=== PATIENT | male | born 1955 | race Caucasian/White ===

== ENCOUNTER 2021-03-11 11:27 | Observation (INO) | payer BC, OTHER ==
[2021-03-11 12:10] LABS: Protime INR 0.98
[2021-03-11 12:11] LABS: Absolute Lymphocytes (CBC) 1.2 K/uL (0.7-4.9); Basophils % 0.6 % (0-1.3); Hematocrit 36.5 % (39.6-49.0); Lymphocytes % 19.1 % (15.3-44.8); MPV 7.7 fL (7.6-11.3)
[2021-03-11] MEDS ORDERED: ASPIRIN 81 MG CHEWABLE TABLET ONE (12:14)
[2021-03-11 12:17] LABS: ALT/SGPT 15 U/L (12-78); AST/SGOT 20 U/L (15-37); Albumin 3.7 g/dL (3.4-5.0); Alkaline Phosphatase 72 U/L (45-117); BUN Blood Urea Nitrogen 16 mg/dL (7-18); Bicarbonate 25 mmol/L (21-32); Bilirubin Direct 0.2 mg/dL (0-0.2); Bilirubin Total 0.5 mg/dL (0.2-1.0); Glucose Level 104 mg/dL (74-106); Magnesium 1.9 mg/dL (1.8-2.4); NT PRO-BNP 88 pg/mL (<125); Potassium 3.7 mmol/L (3.5-5.1); Protein, Total 6.8 g/dL (6.4-8.2); Sodium Level 139 mmol/L (136-145); Troponin (Emerg Dept Use Only) 0.03 ng/mL (0.0-0.045)
--- NOTE | 2021-03-11 12:25 | RAD REPORT ---
EXAM DESCRIPTION: [facility] Single View03/11/2021 12:10 pm CLINICAL HISTORY: Chest pain COMPARISON: none FINDINGS: A few areas of subsegmental atelectasis or scarring left lung base. Right lung appears clear. Heart is normal size
--- NOTE | 2021-03-11 13:47 | EDPHYS ---
Physician Documentation [facility] Name: Franki Billings Age: 65 yrs Sex: Male : 1955 Arrival Date: 03/11/2021 Time: 11:30 Bed 13 Private MD: ED Physician Favian Williamson HPI: 03/11 11:48 This 65 yrs old Male presents to ER via Ambulatory with complaints of Chest pm1 Pain. 11:48 The patient or guardian reports chest pain that is located primarily in the anterior pm1 aspect of left upper chest and mid-sternal area. Onset: yesterday. The pain does not radiate. Associated signs and symptoms: Pertinent negatives: abdominal pain, cough, diaphoresis, dizziness, headache, nausea, shortness of breath, vomiting. The chest pain is described as a pressure. Duration: The patient or guardian reports multiple episodes, the episodes last approximately 30 minute(s), today. Modifying factors: the symptoms are aggravated by possibly exertion while doing his chores. Severity of pain: in the emergency department the pain has improved currently 1-2/10, at worse this AM 7-8. The patient has not recently seen a physician, the patient's primary care provider is Dr. Espinoza. Patient with chest pain onset yesterday that same and went. This AM at 0300 it woke him up out of sleep, 7-8/10 and lasted for 30 minutes. Took some Benadryl to help him go back to sleep. Woke up at 830 and thirty minutes into doing his chores he started having the chest pressure again. Pain has improved to 1-2/10 just prior to ER arrival. Historical: - Allergies: 11:45 No Known Allergies; bp - Home Meds: 11:45 pravastatin oral oral [Active]; amlodipine oral [Active]; CONCERTA Oral [Active]; bp pantoprazole oral oral [Active]; BuSpar Oral [Active]; tamsulosin oral oral [Active]; - PMHx: 11:45 PSYCH; High Cholesterol; Hypertension; bp - Immunization history:: Adult Immunizations up to date, Client reports having NOT received the Covid vaccine. - Social history:: Smoking status: Patient reports the use of cigarette tobacco products, smokes one pack cigarettes per day. ROS: 11:48 Constitutional: Negative for fever, chills, and weight loss, Eyes: Negative for injury, pm1 pain, redness, and discharge, ENT: Negative for injury, pain, and discharge, Neck: Negative for injury, pain, and swelling. 11:48 Respiratory: Negative for shortness of breath, cough, wheezing, and pleuritic chest pain, Abdomen/GI: Negative for abdominal pain, nausea, vomiting, diarrhea, and constipation, Back: Negative for injury and pain, MS/Extremity: Negative for injury and deformity, Skin: Negative for injury, rash, and discoloration, Neuro: Negative for headache, weakness, numbness, tingling, and seizure. 11:48 Cardiovascular: Positive for chest pain, Negative for edema, palpitations. Exam: 11:48 Constitutional: This is a well developed, well nourished patient who is awake, alert, pm1 and in no acute distress. Head/Face: Normocephalic, atraumatic. Eyes: Pupils equal round and reactive to light, extra-ocular motions intact. Lids and lashes normal. Conjunctiva and sclera are non-icteric and not injected. Cornea within normal limits. Periorbital areas with no swelling, redness, or edema. Neck: Trachea midline, no thyromegaly or masses palpated, and no cervical lymphadenopathy. Supple, full range of motion without nuchal rigidity, or vertebral point tenderness. No Meningismus. Chest/axilla: Normal chest wall appearance and motion. Nontender with no deformity. No lesions are appreciated. Cardiovascular: Regular rate and rhythm with a normal S1 and S2. No gallops, murmurs, or rubs. Normal PMI, no JVD. No pulse deficits. Respiratory: Lungs have equal breath sounds bilaterally, clear to auscultation and percussion. No rales, rhonchi or wheezes noted. No increased work of breathing, no retractions or nasal flaring. Back: No spinal tenderness. No costovertebral tenderness. Full range of motion. 11:48 Skin: Warm, dry with normal turgor. Normal color with no rashes, no lesions, and no evidence of cellulitis. MS/ Extremity: Pulses equal, no cyanosis. Neurovascular intact. Full, normal range of motion. 11:48 Abdomen/GI: Inspection: abdomen appears normal, Palpation: abdomen is soft and non-tender, in all quadrants. 11:48 Neuro: Exam negative for acute changes, Orientation: is normal, Mentation: is normal, Motor: is normal, moves all fours. Vital Signs: 11:41 BP 129 / 82; Pulse 72; Resp 16; Temp 98.9; Pulse Ox 100% ; Weight 90.72 kg; Height 5 bp ft. 7 in. (170.18 cm); 12:00 BP 128 / 75; Pulse 74; Resp 20; Pulse Ox 97% on R/A; vg1 12:30 BP 119 / 80; Pulse 66; Resp 22; Pulse Ox 96% on R/A; vg1 13:30 BP 139 / 83; Pulse 62; Resp 16; Pulse Ox 100% on R/A; vg1 14:00 BP 134 / 74; Pulse 70; Resp 20; Pulse Ox 100% on R/A; vg1 16:08 BP 136 / 75; Pulse 58; Resp 18; Pulse Ox 100% on R/A; vg1 11:41 Body Mass Index 31.32 (90.72 kg, 170.18 cm) bp MDM: 11:36 Patient medically screened. [facility] 13:46 Data reviewed: vital signs. Data interpreted: Pulse oximetry: on room air is 100 %. pm1 Interpretation: normal. Counseling: I had a detailed discussion with the patient and/or guardian regarding: the historical points, exam findings, and any diagnostic results supporting the discharge/admit diagnosis, lab results, radiology results, the need for further work-up and treatment in the hospital. 13:52 Physician consultation: Nancy Craig MD was contacted at 13:52, regarding admission, pm1 patient's condition, and will see patient. 03/11 11:40 Order name: Basic Metabolic Panel; Complete Time: 12:21 pm03/11 11:40 Order name: CBC with Diff; Complete Time: 12:21 pm03/11 11:40 Order name: LFT's; Complete Time: 12:21 pm03/11 11:40 Order name: Magnesium; Complete Time: 12:21 pm03/11 11:40 Order name: NT PRO-BNP; Complete Time: 12:21 pm1 03/11 11:40 Order name: PT-INR; Complete Time: 12:21 pm1 03/11 11:40 Order name: Troponin (emerg Dept Use Only); Complete Time: 12:21 pm1 03/11 13:27 Order name: SARS-COV-2 RT PCR; Complete Time: 13:37 [facility] 03/11 14:28 Order name: Lipid Profile [facility] 03/11 14:28 Order name: Lipid Profile [facility] 03/11 14:28 Order name: Troponin I [facility] 03/11 14:28 Order name: Troponin I [facility] 03/11 14:28 Order name: Troponin I [facility] 03/11 11:40 Order name: XRAY Chest (1 view); Complete Time: 12:26 pm1 03/11 11:40 Order name: EKG; Complete Time: 11:41 pm1 03/11 11:40 Order name: Cardiac monitoring; Complete Time: 11:51 pm1 03/11 11:40 Order name: EKG - Nurse/Tech; Complete Time: 11:51 pm1 03/11 11:40 Order name: IV Saline Lock; Complete Time: 11:51 pm1 03/11 11:40 Order name: Labs collected and sent; Complete Time: 11:51 pm1 03/11 11:40 Order name: O2 Per Protocol; Complete Time: 11:51 pm1 03/11 11:40 Order name: O2 Sat Monitoring; Complete Time: 11:51 pm1 03/11 14:28 Order name: CONS Physician Consult [facility] 03/11 14:28 Order name: Heart Healthy [facility] 03/11 14:28 Order name: Echo with Doppler [facility] 03/11 14:28 Order name: EKG Electrocardiogram [facility] 03/11 14:28 Order name: EKG Electrocardiogram [facility] Administered Medications: 11:57 Drug: Aspirin Chewable Tablet 324 mg Route: PO; vg1 13:39 Follow up: Response: No adverse reaction vg1 Disposition: 03/12 10:02 Co-signature as Attending Physician, Favian Williamson MD I agree with the assessment and harish plan of care. Disposition: 03/11/21 13:46 Hospitalization ordered by Nancy Craig for Observation. Preliminary diagnosis is Chest pain, unspecified. - Bed requested for Telemetry/MedSurg (observation). - Status is Observation. vg1 - Condition is Stable. - Problem is new. - Symptoms have improved. Signatures: Dispatcher [employer] [facility] Radha Curtis RN RN dw Anderson, Corey, MD MD cha Marinas, Jef, MUSHROOM PICKER MUSHROOM PICKER pm1 Sixto Hammond, RN RN bp Yanely Whitten, WINIFRED RN vg1 Corrections: (The following items were deleted from the chart) 03/11 12:21 11:47 CORONAVIRUS+ ordered. EDMS EDMS 15:31 13:46 Hospitalization Ordered by Nancy Craig MD for Observation. Preliminary dw diagnosis is Chest pain, unspecified. Bed requested for Telemetry/MedSurg (observation). Status is Observation. Condition is Stable. Problem is new. Symptoms have improved. pm1 16:21 15:31 03/11/2021 13:46 Hospitalization Ordered by Nancy Craig MD for Observation. vg1 Preliminary diagnosis is Chest pain, unspecified. Bed requested for Telemetry/MedSurg (observation). Status is Observation. Condition is Stable. Problem is new. Symptoms have improved. dw
--- NOTE | 2021-03-11 13:47 | ER ---
Nurse's Notes [facility] Name: Franki Billings Age: 65 yrs Sex: Male : 1955 Arrival Date: 03/11/2021 Time: 11:30 Bed 13 Private MD: Diagnosis: Chest pain, unspecified Presentation: 03/11 11:41 Chief complaint: Patient states: INCREASING CHEST PAIN x5 DAYS, TODAY WOKE PATIENT FROM bp SLEEP. Coronavirus screen: At this time, the client does not indicate any symptoms associated with coronavirus-19. Ebola Screen: No symptoms or risks identified at this time. Initial Sepsis Screen: Does the patient meet any 2 criteria? No. Patient's initial sepsis screen is negative. Does the patient have a suspected source of infection? No. Patient's initial sepsis screen is negative. Risk Assessment: Do you want to hurt yourself or someone else? Patient reports no desire to harm self or others. Onset of symptoms is unknown. 11:41 Method Of Arrival: Ambulatory bp 11:41 Acuity: DREW 2 bp Triage Assessment: 11:45 General: Appears in no apparent distress. uncomfortable, obese, Behavior is bp cooperative, appropriate for age, anxious. Pain: Complains of pain in chest Pain currently is 3 out of 10 on a pain scale. at worst was 8 out of 10 on a pain scale. Quality of pain is described as heavy. EENT: No deficits noted. Neuro: Level of Consciousness is awake, alert, obeys commands, Oriented to Appropriate for age. Cardiovascular: Rhythm is sinus rhythm. Respiratory: No deficits noted. GI: No signs and/or symptoms were reported involving the gastrointestinal system. : No signs and/or symptoms were reported regarding the genitourinary system. Derm: No deficits noted. Musculoskeletal: No deficits noted. Historical: - Allergies: 11:45 No Known Allergies; bp - Home Meds: 11:45 pravastatin oral oral [Active]; amlodipine oral [Active]; CONCERTA Oral [Active]; bp pantoprazole oral oral [Active]; BuSpar Oral [Active]; tamsulosin oral oral [Active]; - PMHx: 11:45 PSYCH; High Cholesterol; Hypertension; bp - Immunization history:: Adult Immunizations up to date, Client reports having NOT received the Covid vaccine. - Social history:: Smoking status: Patient reports the use of cigarette tobacco products, smokes one pack cigarettes per day. Screenin:45 Abuse screen: Denies threats or abuse. Denies injuries from another. Nutritional bp screening: No deficits noted. Tuberculosis screening: No symptoms or risk factors identified. Fall Risk None identified. Assessment: 11:45 General: SEE TRIAGE NOTE. bp 11:45 Pain: Pain does not radiate. Pain began 2-3 days ago. bp 12:30 Reassessment: Patient appears in no apparent distress at this time. Patient and/or vg1 family updated on plan of care and expected duration. Pain level reassessed. Patient is alert, oriented x 3, equal unlabored respirations, skin warm/dry/pink. Patient denies pain at this time. 13:22 Reassessment: Patient appears in no apparent distress at this time. Patient and/or vg1 family updated on plan of care and expected duration. Pain level reassessed. Patient is alert, oriented x 3, equal unlabored respirations, skin warm/dry/pink. Pt is currently using chewing tobacco at the bedside. Provider notified. Patient denies pain at this time. 16:09 Reassessment: Patient appears in no apparent distress at this time. Patient and/or vg1 family updated on plan of care and expected duration. Pain level reassessed. Patient is alert, oriented x 3, equal unlabored respirations, skin warm/dry/pink. Patient denies pain at this time. 16:14 Reassessment: Report given to WINIFRED Bravo. vg1 Vital Signs: 11:41 BP 129 / 82; Pulse 72; Resp 16; Temp 98.9; Pulse Ox 100% ; Weight 90.72 kg; Height 5 bp ft. 7 in. (170.18 cm); 12:00 BP 128 / 75; Pulse 74; Resp 20; Pulse Ox 97% on R/A; vg1 12:30 BP 119 / 80; Pulse 66; Resp 22; Pulse Ox 96% on R/A; vg1 13:30 BP 139 / 83; Pulse 62; Resp 16; Pulse Ox 100% on R/A; vg1 14:00 BP 134 / 74; Pulse 70; Resp 20; Pulse Ox 100% on R/A; vg1 16:08 BP 136 / 75; Pulse 58; Resp 18; Pulse Ox 100% on R/A; vg1 11:41 Body Mass Index 31.32 (90.72 kg, 170.18 cm) bp ED Course: 11:30 Patient arrived in ED. ds1 11:33 Jef Dillard NP is PHCP. pm1 11:33 Favian Williamson MD is Attending Physician. pm1 11:43 Triage completed. bp 11:45 Arm band placed on. bp 11:45 Patient has correct armband on for positive identification. Bed in low position. Call bp light in reach. Side rails up X2. radiation monitor on. Pulse ox on. NIBP on. 11:45 Patient maintains SpO2 saturation greater than 95% on room air. bp 11:46 Initial lab(s) drawn, by me, sent to lab. Inserted saline lock: 20 gauge in right vg1 antecubital area, using aseptic technique. Blood collected. 11:53 Yanely Whitten, RN is Primary Nurse. vg1 11:57 COVID swab sent to lab. vg1 12:10 XRAY Chest (1 view) In Process Unspecified. EDMS 13:46 Nancy Craig MD is Hospitalizing Provider. pm1 16:15 No provider procedures requiring assistance completed. Patient admitted, IV remains in vg1 place. Administered Medications: 11:57 Drug: Aspirin Chewable Tablet 324 mg Route: PO; vg1 13:39 Follow up: Response: No adverse reaction vg1 Outcome: 13:46 Decision to Hospitalize by Provider. pm1 16:15 Admitted to Tele accompanied by nurse, via wheelchair, room 427, with chart, Report vg1 called to WINIFRED Bravo 16:15 Condition: good 16:15 Instructed on the need for admit. 16:21 Patient left the ED. vg1 Signatures: Dispatcher [employer] [facility] ClemensSarahi rodriguez ds1 Jef Dillard NP DIETETICS TEACHER pm1 Sixto Hammond, WINIFRED RN bp Yanely Whitten RN RN vg1
[2021-03-11] MEDS ORDERED: MORPHINE 4 MG/ML SYR IV PRN (14:24)
[2021-03-11] MEDS ORDERED: ALPRAZOLAM 0.25 MG TABLET PO PRN (14:24)
[2021-03-11] MEDS ORDERED: ACETAMINOPHEN 500 MG TAB PO PRN (14:24)
[2021-03-11 16:35] VITALS: BMI 31.3
[2021-03-11] MEDS ORDERED: METOPROLOL TAR 25 MG TAB PO SCH (21:00)
--- NOTE | 2021-03-12 00:49 | P.HP ---
Certification for Inpatient Patient admitted to: Observation With expected LOS: <2 Midnights Patient will require the following post-hospital care: None Practitioner: I am a practitioner with admitting privileges, knowledge of patient current condition, hospital course, and medical plan of care. Services: Services provided to patient in accordance with Admission requirements found in Title 42 Section 412.3 of the Code of Federal Regulations Patient History Date of Service: 03/11/21 Reason for admission: Chest pain rule out acute coronary syndrome History of Present Illness: Patient is a 65-year-old gentleman who came to the hospital with chest discomfort. Patient started having some chest pain at home and it was not improving. Patient came into the emergency room for further evaluation. In the emergency room when patient arrived patient states his chest pain started getting better. By the time he got into the hospital bed he says his chest pain was relieved. He was feeling a little bit diaphoretic. He was also little short of breath. He feels this may be related to stress. Patient be admitted for further evaluation. Allergies No Known Allergies Allergy (Verified 03/11/21 15:20) Home Medications: Amlodipine Besylate 10 mg PO DAILY 03/11/21 Buspirone HCl [Buspar] 1 tab PO BID 03/11/21 Duloxetine HCl 60 mg PO DAILY 03/11/21 Methylphenidate HCl [Concerta] 1 tab PO DAILY 03/11/21 Metoprolol Tartrate 50 mg PO BID 03/11/21 Pantoprazole Sodium 40 mg PO DAILY 03/11/21 Pravastatin Sodium 40 mg PO DAILY 03/11/21 Tamsulosin HCl 1 cap PO DAILY 03/11/21 - Past Medical/Surgical History Has patient received pneumonia vaccine in the past: No Diabetic: No -: HTn -: HLD -: Smoker -: [place] -: Bipolar -: laser-prostate - Family History Father Medical History: Other (see notes) Notes: smoker. Mother Medical History: Hypertension, Other (see notes) Notes: migraines - Social History Smoking Status: Current every day smoker Alcohol use: No CD- Drugs: No Caffeine use: Yes Place of Residence: Home Review of Systems 10-point ROS is otherwise unremarkable Physical Examination - Vital Signs Temperature: 98 F Blood Pressure: 113/63 Pulse: 18 Respirations: 18 Pulse Ox (%): 99 - Physical Exam General: Alert, In no apparent distress, Oriented x3 HEENT: Atraumatic, PERRLA, Mucous membr. moist/pink, EOMI, Sclerae nonicteric Neck: Supple, 2+ carotid pulse no bruit, No LAD, Without JVD or thyroid abnormality Respiratory: Clear to auscultation bilaterally, Normal air movement Cardiovascular: Regular rate/rhythm, Normal S1 S2 Gastrointestinal: Normal bowel sounds, Soft and benign, Non-distended, No tenderness Musculoskeletal: No clubbing, No swelling, No tenderness Integumentary: No rashes Neurological: Normal gait, Normal speech, Normal strength at 5/5 x4 extr, Normal tone, Sensation intact, Cranial nerves 3-12 intact, Normal affect Lymphatics: No axilla or inguinal lymphadenopathy - Studies Laboratory Data (last 24 hrs) 03/11/21 11:46: PT 11.3, INR 0.98 03/11/21 11:46: WBC 6.20, Hgb 12.4 L, Hct 36.5 L, Plt Count 283 03/11/21 11:46: Sodium 139, Potassium 3.7, BUN 16, Creatinine 0.77, Glucose 104, Magnesium 1.9, Total Bilirubin 0.5, AST 20, ALT 15, Alkaline Phosphatase 72 Assessment & Plan - Problems (Diagnosis) (1) Chest pain, rule out acute myocardial infarction Current Visit: Yes Status: Acute - Plan 1. Serial troponins and EKG 2. Cardiology consultation 3. Echocardiogram and stress test 4. Anti-platelet therapy, anti coagulation, beta-enriqueta, statin, and O2 as need ed 5. IV morphine for pain 6. Nitro p.r.n. Discharge Plan: Home Plan to discharge in: 24 Hours - Advance Directives Does patient have a Living Will: No Does patient have a Durable POA for Healthcare: No - Code Status/Comfort Care Code Status Assessed: Yes Code Status: Full Code Critical Care: No Time Spent Managing PTS Care (In Minutes): 35
[2021-03-12 07:49] VITALS: TEMP 97
[2021-03-12] MEDS ORDERED: REGADENOSON 0.4 MG/5 ML SYR IV ONE (08:50)
[2021-03-12] MEDS ORDERED: TAMSULOSIN 0.4 MG SR CAP PO SCH (09:00)
[2021-03-12] MEDS ORDERED: BUSPIRONE HCL 5 MG TABLET PO SCH (09:00)
[2021-03-12] MEDS ORDERED: METOPROLOL TAR 50 MG TAB PO SCH (09:00)
[2021-03-12] MEDS ORDERED: PANTOPRAZOLE 40MG TABLET PO SCH (09:00)
[2021-03-12] MEDS ORDERED: ASPIRIN EC 81 MG TAB PO SCH (09:00)
[2021-03-12] MEDS ORDERED: ENOXAPARIN 40 MG/0.4 ML SQ SCH (09:00)
[2021-03-12] MEDS ORDERED: AMLODIPINE 10 MG TAB PO SCH (09:00)
[2021-03-12] MEDS ORDERED: ATORVASTATIN 10 MG TAB PO SCH (09:00)
[2021-03-12] MEDS ORDERED: DULOXETINE 30 MG CAP PO SCH (09:00)
[2021-03-12] MEDS ORDERED: METHYLPHENIDATE HCL 18 MG PO SCH (09:00)
--- NOTE | 2021-03-12 10:58 | P.DS ---
Admission Date: 03/11/21 Discharge Date: 03/12/21 Primary Care Provider: Dr. López Disposition: ROUTINE DISCHARGE Discharge Condition: GOOD Reason for Admission: Chest pain rule out acute coronary syndrome Consultations: Cardiology-Dr. Fernadnez Procedures: COVID: Negative CXR: COMPARISON: none FINDINGS: A few areas of subsegmental atelectasis or scarring left lung base. Right lung appears clear. Heart is normal size Medical Problem List: Chest pain Hypertension Hyperlipidemia GERD Depression with anxiety Adult attention deficit disorder BPH Obesity, BMI 31.3 Brief History of Present Illness: 65-year-old male who came to the hospital with chest discomfort. Patient started having some chest pain at home and it was not improving. Patient came into the emergency room for further evaluation. In the emergency room when patient arrived patient states his chest pain started getting better. By the time he got into the hospital bed he says his chest pain was relieved. He was feeling a little bit diaphoretic. He was also little short of breath. H e feels this may be related to stress. Patient be admitted for further evaluation. Hospital Course: Patient presented with chest pain. Patient with history of hypertension, hyperlipidemia. Cardiac enzymes unremarkable. Patient seen and evaluated by cardiology. Cardiac stress test performed. No further chest pain noted at this time. No further intervention needed at this time. At discharge patient will continue with aspirin 81 mg daily, Norvasc 10 mg daily, metoprolol 50 mg 1 pill twice daily, and pravastatin 40 mg daily. Recommend follow-up with cardiology to follow-up his hospitalization. Patient with hypertension. Blood pressure stable. At discharge patient will continue with Norvasc 10 mg daily and metoprolol 50 mg 1 pill twice daily. Recommend to maintain blood pressure less than 130/80. Further adjustment can be done by his PCP. Patient with hyperlipidemia. At discharge patient will continue with pravastatin 40 mg daily. Patient with GERD. At discharge patient will continue with Protonix 40 mg daily. Patient with depression with anxiety and adult attention deficit disorder. At discharge patient will continue with his current medications of BuSpar 10 mg 1 pill twice daily, Cymbalta 60 mg daily, and Concerta as directed. Patient with BPH. At discharge patient will continue Flomax 0.4 mg daily. Vital Signs/Physical Exam: Temp Pulse Resp BP Pulse Ox 97.0 F 54 16 113/63 100 03/12/21 07:47 03/12/21 07:47 03/12/21 07:47 03/12/21 07:47 03/12/21 07:47 General: Alert, In no apparent distress, Oriented x3, Cooperative HEENT: Atraumatic Neck: Supple Respiratory: Clear to auscultation bilaterally, Normal air movement Cardiovascular: Normal pulses, Regular rate/rhythm Gastrointestinal: Normal bowel sounds, No tenderness, No masses, No rebound, No guarding Musculoskeletal: No erythema, No tenderness, No warmth Integumentary: No tenderness/swelling Neurological: Normal speech, Normal strength at 5/5 x4 extr, Normal tone, Normal affect Laboratory Data at Discharge: WBC 6.20 K/uL (4.3-10.9) 03/11/21 11:46 Hgb 12.4 g/dL (13.6-17.9) L 03/11/21 11:46 Hct 36.5 % (39.6-49.0) L 03/11/21 11:46 Plt Count 283 K/uL (152-406) 03/11/21 11:46 PT 11.3 SECONDS (9.5-12.5) 03/11/21 11:46 INR 0.98 03/11/21 11:46 Sodium 139 mmol/L (136-145) 03/11/21 11:46 Potassium 3.7 mmol/L (3.5-5.1) 03/11/21 11:46 BUN 16 mg/dL (7-18) 03/11/21 11:46 Creatinine 0.77 mg/dL (0.55-1.3) 03/11/21 11:46 Glucose 104 mg/dL (74-106) 03/11/21 11:46 Magnesium 1.9 mg/dL (1.8-2.4) 03/11/21 11:46 Total Bilirubin 0.5 mg/dL (0.2-1.0) 03/11/21 11:46 AST 20 U/L (15-37) 03/11/21 11:46 ALT 15 U/L (12-78) 03/11/21 11:46 Alkaline Phosphatase 72 U/L (45-117) 03/11/21 11:46 Troponin I 0.03 ng/mL (0.0-0.045) 03/12/21 03:08 Triglycerides 123 mg/dL (<150) 03/12/21 03:08 Cholesterol 138 mg/dL (<200) 03/12/21 03:08 HDL Cholesterol 37 mg/dL (40-60) L 03/12/21 03:08 Cholesterol/HDL Ratio 3.73 03/12/21 03:08 Home Medications: Amlodipine Besylate 10 mg PO DAILY 03/11/21 Buspirone HCl [Buspar] 1 tab PO BID 03/11/21 Duloxetine HCl 60 mg PO DAILY 03/11/21 Methylphenidate HCl [Concerta] 1 tab PO DAILY 03/11/21 Metoprolol Tartrate 50 mg PO BID 03/11/21 Pantoprazole Sodium 40 mg PO DAILY 03/11/21 Pravastatin Sodium 40 mg PO DAILY 03/11/21 Tamsulosin HCl 1 cap PO DAILY 03/11/21 Aspirin [Aspirin EC 81 MG] 81 mg PO DAILY #90 tablet. 03/12/21 New Medications: Aspirin [Aspirin EC 81 MG] 81 mg PO DAILY #90 tablet. Physician Discharge Instructions: Patient presented with chest pain. Patient with history of hypertension, hyperlipidemia. Cardiac enzymes unremarkable. Patient seen and evaluated by cardiology. Cardiac stress test performed. No further chest pain noted at this time. No further intervention needed at this time. At discharge patient will continue with aspirin 81 mg daily, Norvasc 10 mg daily, metoprolol 50 mg 1 pill twice daily, and pravastatin 40 mg daily. Recommend follow-up with cardiology to follow-up his hospitalization. Patient with hypertension. Blood pressure stable. At discharge patient will continue with Norvasc 10 mg daily and metoprolol 50 mg 1 pill twice daily. Recommend to maintain blood pressure less than 130/80. Further adjustment can be done by his PCP. Patient with hyperlipidemia. At discharge patient will continue with pravastatin 40 mg daily. Patient with GERD. At discharge patient will continue with Protonix 40 mg daily. Patient with depression with anxiety and adult attention deficit disorder. At discharge patient will continue with his current medications of BuSpar 10 mg 1 pill twice daily, Cymbalta 60 mg daily, and Concerta as directed. Patient with BPH. At discharge patient will continue Flomax 0.4 mg daily. Diet: AHA Activity: Ad lilia Followup: Isaiah Espinoza MD [ACTIVE - CAN ADMIT] - Time spent managing pt's care (in minutes): 55
--- NOTE | 2021-03-12 11:31 | RAD REPORT ---
EXAM DESCRIPTION: NM - Rest Stress Cardiac Imaging - 03/12/2021 10:57 am CLINICAL HISTORY: Chest pain COMPARISON: None. TECHNIQUE: The patient was administered 11 mCi of Tc 99m Sestamibi prior to resting SPECT imaging of the heart. The patient was then administered 32.9 mCi of Tc 99m Sestamibi following exercise or phar macologic stress. Multiplanar SPECT images were reviewed. FINDINGS: The end diastolic volume is 130 ml, the end systolic volume is 60 ml, and the ejection fra ction is 54 %. Stress imaging shows significantly diminished activity in the septal wall mid in apex portion and in the anteroseptal wall mid in apex portion. Small involvement of the adjacent inferior wall noted. Thi s diminished activity is absent or less pronounced on the rest sequencing. Patient does have fixed in ferior wall diminished activity. Lateral wall shows no abnormal profusion. IMPRESSION: Stress-induced ischemic changes involving the septal wall and anteroseptal wall from mid portion the apex. Scarring changes are present in the inferior wall mid in apex portion. This scarring abuts the area o f stress ischemia in the septal wall. End-diastolic volume is enlarged at 1:00 30 milliliters. Ejection fraction is normal range 54%
[2021-03-12 12:02] VITALS: O2SAT 98
[2021-03-12 12:08] VITALS: BP 123/70
--- NOTE | 2021-03-13 08:12 | ECHO ---
HEIGHT: 5 ft 7 in WEIGHT: 200 lb 0 oz DATE OF STUDY: 03/12/[address]: Nancy Craig MD 2-DIMENSIONAL: YES M.MODE: YES DOPPLER: YES COLOR FLOW: YES TDS: NO PORTABLE: NO DEFINITY: NO BUBBLE STUDY: NO DIAGNOSIS: CHEST PAIN, RULE OUT ACS CARDIAC HISTORY: CATHERIZATION: NO SURGERY: NO PROSTHETIC VALVE: NO PACEMAKER: NO MEASUREMENTS (cm) DIASTOLIC (NORMALS) SYSTOLIC (NORMALS) IVSd 1.0 (0.6-1.2) LA Diam 3.1 (1.9-4.0) LVEF 58% LVIDd 4.5 (3.5-5.7) LVIDs 3.1 (2.0-3.5) %FS 30% LVPWd 1.1 (0.6-1.2) Ao Diam 3.2 (2.0-3.7) 2 DIMENSIONAL ASSESSMENT: RIGHT ATRIUM: NORMAL LEFT ATRIUM: NORMAL RIGHT VENTRICLE: NORMAL LEFT VENTRICLE: NORMAL TRICUSPID VALVE: NORMAL MITRAL VALVE: NORMAL PULMONIC VALVE: NORMAL AORTIC VALVE: NORMAL PERICARDIAL EFFUSION: NONE AORTIC ROOT: NORMAL LEFT VENTRICULAR WALL MOTION: NORMAL DOPPLER/COLOR FLOW: NORMAL COMMENTS: NORMAL LEFT VENTRICULAR EJECTION FRACTION 55-60%. NORMAL WALL MOTION. NORMAL DIASTOLIC FUNCTION. TECHNOLOGIST: Leslie RAMIREZ
--- NOTE | 2021-03-13 08:28 | TREADPHA ---
DX: CHEST PAIN Date of Study: 03/12/2021 Ht: 5' 7 " Wt: 200 lb 0 oz Consulting Physician: KEN MEDICATIONS: NORVASC, LIPITOR, LOPRESSOR HISTORY: HYPERTENSION, HIGH CHOLESTEROL PHYSICIAL EXAMINATION: RESTING B.P.: 134/79 RESTING H.R.: 83 RESTING EKG: NORMAL PROTOCOL: LEXISCAN EXERCISE TIME: 3:30 B.P. AT PEAK STRESS: 126/63 IMPRESSION: LEXISCAN INJECTED. CARDIOLITE INJECTED. SEE NUCLEAR MEDICINE REPORT. NO COMPLAINTS OF CHEST PAIN OR SHORTNESS OF BREATH. NO VENTRICULAR TACHYCARDIA. NO SUPRAVENTRICULAR TACHYCARDIA. NO ARRHYTHMIAS. NO WKG CHANGE OF ISCHEMIA.
--- NOTE | 2021-03-14 11:17 | CON ---
Date of Consultation: 03/12/2021 Reason For Consultation: Chest pain. History Of Present Illness: Mr. Billings is a 65-year-old white male. Has hypertension, has d yslipidemia, has a history of bipolar disorder. He also has history of gastroesophageal reflux disea se, benign prostatic hypertrophy. He came in with substernal chest pain. Echocardiogram that was no rmal. His chest x-ray was pending. He was pain free. He was ruled out for an TX. EKG was unremark able. Troponin was negative. He denied PND, orthopnea, pedal edema, palpitations, or syncope. He d enied any nausea, vomiting. No diaphoresis. Past Medical History: As stated above. Allergies: HE IS ALLERGIC TO NO MEDICATIONS. Medications: At home include Flomax, BuSpar, Norvasc, , metoprolol, and Pravachol. Review of Systems: Negative. Social History: Positive for smoking 1 pack a day. Family History: Positive for heart disease. Physical Examination: Vital Signs: Stable. He was afebrile. HEENT: Negative. Neck: Supple with no bruit. Chest: Clear. Cardiac: Revealed a regular rhythm and rate. No murmurs, gallops, or rubs. Abdomen: Benign. Extremities: Revealed no clubbing, no edema. Diagnostic Data: As stated earlier. Impression And Plan: Mr. Billings's symptoms are very suspicious. His echocardiogram is diana l. His chest x-ray is pending. We will see what that shows before making further decision. If ____ pending, we can certainly we will arrange an outpatient heart catheterization. The patient understands the risks as soon as possible only has remote chest pain. His other problems including hypertension, dyslipidemia, gastroesophageal reflux disease, benign prostatic hype rtrophy are all stable at this point. SARA/ELGIN Voice ID: [id number] Report ID: [id number]
== END 2021-03-12 12:16 | disposition home or self-care (01) ==
LOC: ER 11:27 → ERHOLD 14:24 → 4TH 16:17
PROVIDERS: ADMIT Hospitalist; ATTEND Family Medicine
DX: R07.9 Chest pain, unspecified (principal); I10 Essential (primary) hypertension; E78.5 Hyperlipidemia, unspecified; K21.9 Gastro-esophageal reflux disease without esophagitis; F41.8 Other specified anxiety disorders; F98.8 Other specified behavioral and emotional disorders with onset usually occurring in childhood and adolescence; F31.9 Bipolar disorder, unspecified; N40.0 Benign prostatic hyperplasia without lower urinary tract symptoms; E66.9 Obesity, unspecified; Z68.31 Body mass index [BMI] 31.0-31.9, adult; F17.210 Nicotine dependence, cigarettes, uncomplicated; Z20.822 Contact with and (suspected) exposure to COVID-19; Z82.49 Family history of ischemic heart disease and other diseases of the circulatory system
CPT/HCPCS: 93005; 93017; 93306; 85025; 80048; 36415; 83735; 85610; 80061; 80076; 84484 ×3; 83880; 71045; 78452; U0003; J2785; A9500; 99285; G0378

== ENCOUNTER 2021-03-13 07:19 | Observation (INO) | payer BC ==
[2021-03-13 07:48] LABS: Basophils % 0.6 % (0-1.3); Hematocrit 37.6 % (39.6-49.0); Lymphocytes % 16.5 % (15.3-44.8); MPV 7.7 fL (7.6-11.3)
[2021-03-13 08:08] LABS: Protime INR 0.94
--- NOTE | 2021-03-13 08:10 | RAD REPORT ---
EXAM DESCRIPTION: Magan Single View03/13/2021 8:00 am CLINICAL HISTORY: Chest pain COMPARISON: March 11, 2021 FINDINGS: The lungs appear clear of acute infiltrate. The heart is normal size IMPRESSION: No acute abnormalities displayed
[2021-03-13 08:22] LABS: BUN Blood Urea Nitrogen 17 mg/dL (7-18); Bicarbonate 26 mmol/L (21-32); Glucose Level 113 mg/dL (74-106); NT PRO-BNP 103 pg/mL (<125); Sodium Level 141 mmol/L (136-145); Troponin (Emerg Dept Use Only) < 0.02 ng/mL (0.0-0.045)
[2021-03-13] MEDS ORDERED: ASPIRIN 81 MG CHEWABLE TABLET ONE (09:29)
--- NOTE | 2021-03-13 09:38 | EDPHYS ---
Physician Documentation [facility] Name: Franki Billings Age: 65 yrs Sex: Male : 1955 Arrival Date: 03/13/2021 Time: 07:22 Bed 5 Private MD: Isaiah Espinoza ED Physician Presley Presley HPI: 03/13 09:32 This 65 yrs old Male presents to ER via Ambulatory with complaints of Chest rn Pain. 09:32 The patient or guardian reports chest pain that is located primarily in the substernal rn area. Onset: 1 week(s) ago. The pain does not radiate. Associated signs and symptoms: Pertinent positives: dizziness, shortness of breath, Pertinent negatives: abdominal pain, cough. The chest pain is described as a heaviness, a pressure. Duration: The patient or guardian reports multiple episodes, that are intermittent, the episodes last approximately 30 minute(s). Modifying factors: The symptoms are alleviated by nothing. the symptoms are aggravated by exertion. Severity of pain: At its worst the pain was moderate in the emergency department the pain has resolved. The patient has experienced similar episodes in the past. Reports just discharged yesterday from hospital, called and told to see Dr Fernandez this AM for abnormal stress test. Reports had another episode of chest pain this AM around 0500 that lasted longer, got worried, came here instead. . Historical: - Allergies: 07:25 No Known Allergies; aa5 - Home Meds: 07:44 amlodipine oral [Active]; BuSpar Oral [Active]; Concerta Oral [Active]; pantoprazole tw2 Oral [Active]; pravastatin Oral [Active]; tamsulosin Oral [Active]; - PMHx: 07:25 High Cholesterol; Hypertension; psych; aa5 - Immunization history:: Adult Immunizations. - Social history:: Smoking status: . - Family history:: not pertinent. - Hospitalizations: : The patient was recently seen at [facility]. ROS: 09:32 Constitutional: Negative for fever, chills, and weight loss, Eyes: Negative for injury, rn pain, redness, and discharge, Neck: Negative for injury, pain, and swelling, Cardiovascular: + chest pain Respiratory: Negative for cough, wheezing, and pleuritic chest pain, Abdomen/GI: Negative for abdominal pain, nausea, vomiting, diarrhea, and constipation, Back: Negative for injury and pain, MS/Extremity: Negative for injury and deformity, Skin: Negative for injury, rash, and discoloration, Neuro: Negative for headache, weakness, numbness, tingling, and seizure. Exam: 09:32 Constitutional: This is a well developed, well nourished patient who is awake, alert, rn and in no acute distress. Head/Face: Normocephalic, atraumatic. Eyes: Periorbital areas with no swelling, redness, or edema. ENT: MMM Cardiovascular: Regular rate and rhythm. No pulse deficits. Respiratory: No increased work of breathing, no retractions or nasal flaring. Abdomen/GI: soft, non-tender Skin: Warm, dry with normal turgor. Normal color with no rashes, no lesions, and no evidence of cellulitis. MS/ Extremity: Pulses equal, no cyanosis. Neurovascular intact. Full, normal range of motion. Equal circumference. Neuro: Awake and alert, GCS 15 Vital Signs: 07:25 BP 122 / 78; Pulse 63; Resp 18 S; Temp 98.0; Pulse Ox 100% on R/A; Pain 0/10; aa5 08:20 BP 114 / 76; Pulse 56; Resp 17; Pulse Ox 100% on R/A; tw2 09:11 BP 131 / 86; Pulse 60; Resp 17; Pulse Ox 100% on R/A; tw2 09:24 Weight 90.72 kg (R); Height 5 ft. 7 in. (170.18 cm) (R); aa5 09:24 Body Mass Index 31.32 (90.72 kg, 170.18 cm) aa MDM: 07:25 Patient medically screened. rn 09:32 Differential diagnosis: acute myocardial infarction, acute pericarditis, anxiety, rn coronary artery disease costochondritis, esophagitis, gastritis, pleurisy. Data reviewed: vital signs, nurses notes, lab test result(s), EKG, radiologic studies, plain films, and as a result, I will admit patient. Counseling: I had a detailed discussion with the patient and/or guardian regarding: the historical points, exam findings, and any diagnostic results supporting the discharge/admit diagnosis, lab results, radiology results, the need for further work-up and treatment in the hospital. Response to treatment: the patient's symptoms have resolved after treatment, the patient's condition has returned to base line, the patient is now symptom free, and as a result, I will admit patient. Admission orders: after a detailed discussion of the patient's condition and case, the admit orders are written by me. ED course: Consulted with Dr. Fernandez, plans to cath patient, only wants aspirin at this point, still chest pain free. . 03/13 07:32 Order name: Basic Metabolic Panel; Complete Time: 08:59 rn 03/13 07:32 Order name: CBC with Diff; Complete Time: 08: rn 03/13 07:32 Order name: NT PRO-BNP; Complete Time: 08:59 rn 03/13 07:32 Order name: PT-INR; Complete Time: 08:59 rn 03/13 07:32 Order name: Troponin (emerg Dept Use Only); Complete Time: 08:59 rn 03/13 07:32 Order name: XRAY Chest (1 view); Complete Time: 08: rn 03/13 07:32 Order name: EKG; Complete Time: 07:33 rn 03/13 07:32 Order name: Cardiac monitoring; Complete Time: 07:41 rn 03/13 07:32 Order name: EKG - Nurse/Tech; Complete Time: 07:41 rn 03/13 07:32 Order name: IV Saline Lock; Complete Time: 07:41 rn 03/13 07:32 Order name: Labs collected and sent; Complete Time: 07:41 rn 03/13 07:32 Order name: O2 Per Protocol; Complete Time: 07: rn 03/13 07:32 Order name: O2 Sat Monitoring; Complete Time: 07:41 rn Administered Medications: :11 Drug: Aspirin 81 mg Route: PO; tw2 09:12 Follow up: Response: No adverse reaction tw2 Disposition: 03/13/21 09:37 Hospitalization ordered by Wilfrid Gannon for Observation. Preliminary diagnosis are Chest pain, unspecified, Unstable angina. - Bed requested for Telemetry/MedSurg (observation). - Status is Observation. bp - Condition is Stable. - Problem is an ongoing problem. - Symptoms have improved. Signatures: Dispatcher [employer] EDMS Presley Presley MD MD rn Calderon, Audri, RN RN [id number] iPa Rodgers, RN RN tw2 Sixto Hammond RN RN bp Corrections: (The following items were deleted from the chart) 10:14 09:37 Hospitalization Ordered by Wilfrid Gannon DO for Observation. Preliminary bp diagnosis is Chest pain, unspecified; Unstable angina. Bed requested for Telemetry/MedSurg (observation). Status is Observation. Condition is Stable. Problem is an ongoing problem. Symptoms have improved. rn
--- NOTE | 2021-03-13 09:38 | ER ---
Nurse's Notes [facility] Name: Franki Billings Age: 65 yrs Sex: Male : 1955 Arrival Date: 03/13/2021 Time: 07:22 Bed 5 Private MD: Isaiah Espinoza Diagnosis: Chest pain, unspecified;Unstable angina Presentation: 03/13 07:25 Chief complaint: Patient states: chest pain that lasted for approximately 30 minutes aa5 around 0400 today. Pt reports he was d/c'd from hospital yesterday and had stress test, reports he received a call from Dr. Fernandez to see him in his office today at 0800. 07:25 Coronavirus screen: At this time, the client does not indicate any symptoms associated aa5 with coronavirus-19. Ebola Screen: Patient negative for fever greater than or equal to 101.5 degrees Fahrenheit, and additional compatible Ebola Virus Disease symptoms. Initial Sepsis Screen: Does the patient meet any 2 criteria? No. Patient's initial sepsis screen is negative. Does the patient have a suspected source of infection? No. Patient's initial sepsis screen is negative. Risk Assessment: Do you want to hurt yourself or someone else? Patient reports no desire to harm self or others. Onset of symptoms was March 2021. 07:25 Method Of Arrival: Ambulatory aa5 07:25 Acuity: DREW 3 aa5 Historical: - Allergies: 07:25 No Known Allergies; aa5 - Home Meds: 07:44 amlodipine oral [Active]; BuSpar Oral [Active]; Concerta Oral [Active]; pantoprazole tw2 Oral [Active]; pravastatin Oral [Active]; tamsulosin Oral [Active]; - PMHx: 07:25 High Cholesterol; Hypertension; psych; aa5 - Immunization history:: Adult Immunizations. - Social history:: Smoking status: . - Family history:: not pertinent. - Hospitalizations: : The patient was recently seen at [facility]. Screenin:30 Abuse screen: Denies threats or abuse. Nutritional screening: No deficits noted. tw2 Tuberculosis screening: No symptoms or risk factors identified. Fall Risk Secondary diagnosis (15 points) impaired mobility. Assessment: 07:30 Reassessment: provider at bedside at this time, EKG performed. tw2 07:32 General: Appears in no apparent distress. well groomed, Behavior is calm, cooperative, tw2 appropriate for age. Pain: Complains of pain in chest Pain does not radiate. Neuro: Level of Consciousness is awake, alert, obeys commands, Oriented to person, place, time, situation. Cardiovascular: Capillary refill < 3 seconds Patient's skin is warm and dry. Respiratory: Airway is patent Respiratory effort is even, unlabored, Respiratory pattern is regular, symmetrical. GI: No signs and/or symptoms were reported involving the gastrointestinal system. Abdomen is round non-distended. : No signs and/or symptoms were reported regarding the genitourinary system. EENT: No signs and/or symptoms were reported regarding the EENT system. Derm: No signs and/or symptoms reported regarding the dermatologic system. Musculoskeletal: Range of motion: intact in all extremities. 07:42 Pain: Pain began. tw2 08:20 Reassessment: Patient appears in no apparent distress at this time. No changes from tw2 previously documented assessment. Patient and/or family updated on plan of care and expected duration. Pain level reassessed. Patient is alert, oriented x 3, equal unlabored respirations, skin warm/dry/pink. 09:11 Reassessment: Patient appears in no apparent distress at this time. No changes from tw2 previously documented assessment. Patient and/or family updated on plan of care and expected duration. Pain level reassessed. Patient is alert, oriented x 3, equal unlabored respirations, skin warm/dry/pink. 10:04 Reassessment: DIESEL AUTOMOTIVE TECHNICIAN AT B/S FOR TRANSPORT. bp Vital Signs: 07:25 BP 122 / 78; Pulse 63; Resp 18 S; Temp 98.0; Pulse Ox 100% on R/A; Pain 0/10; aa5 08:20 BP 114 / 76; Pulse 56; Resp 17; Pulse Ox 100% on R/A; tw2 09:11 BP 131 / 86; Pulse 60; Resp 17; Pulse Ox 100% on R/A; tw2 09:24 Weight 90.72 kg (R); Height 5 ft. 7 in. (170.18 cm) (R); aa5 09:24 Body Mass Index 31.32 (90.72 kg, 170.18 cm) aa5 ED Course: 07:22 Patient arrived in ED. am2 07:22 Isaiah Espinoza MD is Private Physician. am2 07:25 Presley Presley MD is Attending Physician. rn 07:25 Arm band placed on Patient placed in an exam room, on a stretcher. aa5 07:30 Pia Rodgers, RN is Primary Nurse. tw2 07:30 Bed in low position. Call light in reach. real estate site analyst on. Pulse ox on. NIBP on. tw2 07:33 Triage completed. aa5 07:35 Inserted saline lock: 20 gauge in right antecubital area, using aseptic technique. tw2 Blood collected. 07:43 Patient maintains SpO2 saturation greater than 95% on room air. tw2 07:51 EKG done, by ED staff, reviewed by Presley Presley MD. [facility] 08:00 XRAY Chest (1 view) In Process Unspecified. EDMS 09:37 Wilfrid Gannon DO is Hospitalizing Provider. rn 10:05 No provider procedures requiring assistance completed. Patient admitted, IV remains in bp place. Administered Medications: 09:11 Drug: Aspirin 81 mg Route: PO; tw2 09:12 Follow up: Response: No adverse reaction tw2 Outcome: 09:37 Decision to Hospitalize by Provider. rn 10:05 Admitted to Housing Assistant accompanied by nurse, via stretcher, on monitor, with chart, bp Report called to SONJA VITALE 10:05 Condition: stable 10:05 Instructed on the need for admit. 10:14 Patient left the ED. bp Signatures: Dispatcher [employer] EDMT Presley Presley MD MD rn Calderon, Audri RN RN 5 Pia Rodgers, WINIFRED RN 2 Radha Kim [facility] Kassie Herring [facility] Sixto Hammond RN RN bp Corrections: (The following items were deleted from the chart) 07:35 07:25 BP 122 / 78; Pulse 63bpm; Resp 18bpm; Spontaneous; Pulse Ox 100% RA; Temp 98.0F; aa5 5
[2021-03-13] MEDS ORDERED: ATROPINE SULF 1 MG/10 ML SYR IV ONE (10:07)
[2021-03-13] MEDS ORDERED: FENTANYL CITR 100 MCG/2 ML ONE (10:07)
[2021-03-13] MEDS ORDERED: NA CHLORIDE 0.9% 50 ML ONE (10:07)
[2021-03-13] MEDS ORDERED: MIDAZOLAM HCL 2 MG/2 ML INJ ONE (10:07)
[2021-03-13] MEDS ORDERED: HEPA 1000U/500MLS 1,000 UNIT/500 ML BAG IV ONE (10:08)
--- NOTE | 2021-03-13 10:26 | P.HP ---
Certification for Inpatient Patient admitted to: Observation With expected LOS: <2 Midnights Patient will require the following post-hospital care: None Practitioner: I am a practitioner with admitting privileges, knowledge of patient current condition, hospital course, and medical plan of care. Services: Services provided to patient in accordance with Admission requirements found in Title 42 Section 412.3 of the Code of Federal Regulations Patient History Date of Service: 03/13/21 Primary Care Provider: Dr. López; Cardiology-Dr. Fernandez Reason for admission: Chest pain History of Present Illness: 65-year-old male with history of hypertension, hyperlipidemia, GERD, depression with anxiety, BPH and attention deficit disorder. Patient was recently hospitalized on 03/11 through . This was for chest pain. Patient was discharge after cardiac stress test was performed. Patient did not wait on results. Later that evening cardiology informed patient that cardiac stress test was abnormal and that he would require heart catheterization. He was told to follow up today. Prior to going to Cardiology, patient reported chest pain to the substernal region. He would radiate bilateral. He denied any shortness of breath. Patient was evaluated the emergency room. Initial cardiac enzymes unremarkable. No significant ST changes noted. Report from cardiac stress test was reviewed. Echocardiogram performed showed normal ejection fraction without any deficits. Patient admitted for further evaluation. Cardiology has been informed. Cardiology plans for heart catheterization soon. Allergies No Known Allergies Allergy (Verified 03/11/21 15:20) Home medications list reviewed: Yes Home Medications: Amlodipine Besylate 10 mg PO DAILY 03/11/21 Buspirone HCl [Buspar] 1 tab PO BID 03/11/21 Duloxetine HCl 60 mg PO DAILY 03/11/21 Methylphenidate HCl [Concerta] 1 tab PO DAILY 03/11/21 Metoprolol Tartrate 50 mg PO BID 03/11/21 Pantoprazole Sodium 40 mg PO DAILY 03/11/21 Pravastatin Sodium 40 mg PO DAILY 03/11/21 Tamsulosin HCl 1 cap PO DAILY 03/11/21 Aspirin [Aspirin EC 81 MG] 81 mg PO DAILY #90 tablet. 03/12/21 - Past Medical/Surgical History Diabetic: No -: Hypertension -: Hyperlipidemia -: BPH -: Depression with anxiety -: Attention deficit disorder -: GERD -: laser-prostate Psychosocial/ Personal History: Patient lives at home - Family History Father -: Other (see notes) Notes: smoker. Mother -: Hypertension, Other (see notes) Notes: migraines - Social History Smoking Status: Unknown if ever smoked Alcohol use: No CD- Drugs: No Caffeine use: Yes Place of Residence: Home Review of Systems General: As per HPI Eyes: Unremarkable ENT: Unremarkable Respiratory: Unremarkable Cardiovascular: Chest Pain, As per HPI Gastrointestinal: Unremarkable Genitourinary: Unremarkable Musculoskeletal: Unremarkable Integumentary: Unremarkable Neurological: Unremarkable Lymphatics: Unremarkable Physical Examination - Studies Laboratory Data (last 24 hrs) 03/13/21 07:35: PT 10.8, INR 0.94 03/13/21 07:35: WBC 6.30, Hgb 12.9 L, Hct 37.6 L, Plt Count 285 03/13/21 07:35: Sodium 141, Potassium 4.0, BUN 17, Creatinine 0.74, Glucose 113 H Assessment and Plan - Plan Impression: Chest pain with abnormal cardiac stress test suspect CAD Hypertension Hyperlipidemia Depression with anxiety Adult attention deficit disorder BPH GERD Obesity, BMI 31.3 Plan: Chest pain with abnormal cardiac stress test suspect CAD: Patient will be admitted for further evaluation and treatment. Will keep the patient NPO. ER has spoken to Cardiology. Cardiology plans for heart catheterization to further evaluate his condition. DVT prophylaxis in place. Patient with recent cardiac stress test that was abnormal. Echocardiogram unremarkable. Continue with home medication of aspirin, Norvasc, metoprolol and statin medication. Await heart catheterization findings. Await recommendations by Cardiology. Anticipate improvement over the next 24 hr. Hypertension: Continue Norvasc and metoprolol Hyperlipidemia: Continue statin medication Depression with anxiety: Continue Buspar Adult attention deficit disorder: Hold Concerta GERD: Continue Protonix BPH: Continue Flomax Obesity, BMI 31.3 : Will address lifestyle modification education. Discharge Plan: Home Plan to discharge in: 24 Hours - Advance Directives Does patient have a Living Will: No Does patient have a Durable POA for Healthcare: No - Code Status/Comfort Care Code Status Assessed: Yes (Patient is full code) Time Spent Managing Pts Care (In Minutes): 55
[2021-03-13] MEDS ORDERED: NA CHLORIDE 0.9% 500 ML ONE (10:37)
[2021-03-13] MEDS ORDERED: ASPIRIN 325 MG TAB ONE (11:37)
[2021-03-13] MEDS ORDERED: PRASUGREL (EFFIENT) 10 MG TAB ONE (11:38)
[2021-03-13] MEDS ORDERED: ACETAMINOPHEN 500 MG TAB PO PRN (12:50)
[2021-03-13] MEDS ORDERED: ONDANSETRON 4 MG/2 ML VIAL IV PRN (12:50)
[2021-03-13 12:54] VITALS: BMI 31.3
[2021-03-13] MEDS ORDERED: NA CHLORIDE 0.9% 1,000 ML IV SCH ×2 (15:00→16:00)
[2021-03-13 15:09] LABS: Urine Appearance CLEAR (Clear); Urine Bilirubin NEGATIVE (Negative); Urine Blood NEGATIVE (Negative); Urine Color YELLOW (Yellow); Urine Glucose NEGATIVE (Negative); Urine Protein NEGATIVE (Negative); Urine Specific Gravity >=1.030 (1.005-1.030); Urine Urobilinogen 0.2 mg/dL (0.2-1.0)
[2021-03-13] MEDS ORDERED: MORPHINE 4 MG/ML SYR IV PRN (15:10)
[2021-03-13] MEDS ORDERED: ZOLPIDEM TARTRATE 5 MG TABLET PO PRN (15:11)
[2021-03-13 15:32] LABS: Urine Microscopic Reflex NO UMIC
[2021-03-13] MEDS ORDERED: ACETAMINOPHEN 325 MG TABLET PO PRN (16:00)
[2021-03-13] MEDS ORDERED: NITROGLYCERIN 0.4 MG/TAB SL PRN (16:00)
--- NOTE | 2021-03-13 17:41 | EKG ---
Test Date: 2021-03-13 Test Time: 07:33:29 Director Career Services: CAROLYNN MEASUREMENT RESULTS: Intervals: Rate: 53 CA: 188 QRSD: 92 QT: 432 QTc: 405 [place]: P: 44 CA: 188 QRS: 24 T: 31 INTERPRETIVE STATEMENTS: Sinus bradycardia Otherwise normal ECG Compared to ECG 03/11/2021 11:40:19 Sinus rhythm no longer present Electronically Signed On 03-13-21 17:40:05 CDT by Dave Fernandez
[2021-03-13] MEDS ORDERED: METOPROLOL TAR 50 MG TAB PO SCH (21:00)
[2021-03-13] MEDS ORDERED: DULOXETINE 30 MG CAP PO SCH (21:00)
[2021-03-13] MEDS ORDERED: BUSPIRONE HCL 5 MG TABLET PO SCH (21:00)
[2021-03-13] MEDS ORDERED: ATORVASTATIN 10 MG TAB PO SCH (21:00)
[2021-03-13] MEDS ORDERED: TAMSULOSIN 0.4 MG SR CAP PO SCH (21:00)
--- NOTE | 2021-03-13 22:06 | OP ---
Surgeon: Dave Fernandez MD Evs Manager: Josh Lock. The patient will remain in the hospital for overnight. I will send him home tomorrow morning on his home medication plus Plavix. For tonight, an Angio-Seal was used to close the groin. Angiography th ere was normal. He will be in the hospital [facility], bedrest for 2 hours. Admitted through the emergency room today on 03/13/2021 because of unstable angina and recent positiv e stress test. Indications: Mr. Billings is a 65-year-old male who has hypertension, dyslipidemia, family his tory of heart disease, tobacco use, had chest pain suggestive of angina. Stress test showed a positi ve anteroapical ischemia. He was going to have the catheterization done as an outpatient, but he got readmitted with chest pain. Procedure In Detail: Brought to the calibration laboratory technician urgently, prepped and draped in the routine sterile fas hion. Given Versed and fentanyl for sedation. 6-Yi sheath introduced in the right common femora l artery successfully using the Seldinger technique and 10 cc of xylocaine. Sterling catheter left an d right were used to cannulate the left main and right main respectively. He was found to have an 80 % proximal LAD and 95% mid LAD. These were stented after using an XB 3.5 with side hole guide and Co ug[place] wire. We used 2 stents 3.5 x 24. They were overlapped from the proximal but all the way to the mid LAD. The overlap was postdilated with the stent balloon. His RCA had some mild disease. He wa s very right dominant. The circumflex was normal. He received Angiomax, Effient and aspirin during the procedure. Anesthesia: Total conscious sedation was 60 minutes. Complications: None. Blood Loss: 5 mL. Postoperative Diagnoses: Coronary artery disease, severe, status post successful primary stent of th e LAD, proximal and mid. NB/MODL Voice ID: [id number] Report ID: [id number]
[2021-03-14 05:01] VITALS: BP 114/63; TEMP 97.9
[2021-03-14 06:03] LABS: BUN Blood Urea Nitrogen 12 mg/dL (7-18); Bicarbonate 27 mmol/L (21-32); Glucose Level 114 mg/dL (74-106); Magnesium 1.9 mg/dL (1.8-2.4); Potassium 3.9 mmol/L (3.5-5.1); Sodium Level 142 mmol/L (136-145)
[2021-03-14] MEDS ORDERED: PANTOPRAZOLE 40MG TABLET PO SCH (06:30)
--- NOTE | 2021-03-14 07:03 | P.DS ---
Admission Date: 03/13/21 Discharge Date: 03/14/21 Primary Care Provider: Dr. López; Cardiology-Dr. Fernandez Disposition: ROUTINE DISCHARGE Discharge Condition: GOOD Reason for Admission: Chest pain Consultations: Cardiology-Dr. Fernandez Procedures: Heart Cath: Surgeon: Dave Fernandez MD Director Of Social Work: Josh Lock. Procedure In Detail: He was found to have an 80% proximal LAD and 95% mid LAD. These were stented after using an XB 3.5 with side hole guide and [place] wire. We used 2 stents 3.5 x 24. They were overlapped from the proximal but all the way to the mid LAD. The overlap was postdilated with the stent balloon. His RCA had some mild disease. He was very right dominant. The circumflex was normal. He received Angiomax, Effient and aspirin during the procedure. Anesthesia: Total conscious sedation was 60 minutes. Complications: None. Blood Loss: 5 mL. Postoperative Diagnoses: Coronary artery disease, severe, status post success ful primary stent of the LAD, proximal and mid. Medical Problem List: Chest pain, unstable angina with abnormal cardiac stress test secondary to CAD with heart catheterization showing 80% proximal LAD stenosis and 95% mid LAD stenosis status post successful stents to both areas Hypertension Hyperlipidemia Depression with anxiety Adult attention deficit disorder BPH GERD Obesity, BMI 31.3 Brief History of Present Illness: 65-year-old male with history of hypertension, hyperlipidemia, GERD, depression with anxiety, BPH and attention deficit disorder. Patient was recently hospitalized on 03/11 through 510. This was for chest pain. Patient was discharge after cardiac stress test was performed. Patient did not wait on results. Later that evening cardiology informed patient that cardiac stress test was abnormal and that he would require heart catheterization. He was told to follow up today. Prior to going to Cardiology, patient reported chest pain to the substernal region. He would radiate bilateral. He denied any shortness of breath. Patient was evaluated the emergency room. Initial cardiac enzymes unremarkable. No significant ST changes noted. Report from cardiac stress test was reviewed. Echocardiogram performed showed normal ejection fraction without any deficits. Patient admitted for further evaluation. Cardiology has been informed. Cardiology plans for heart catheterization soon. Hospital Course: Patient presented with chest pain, unstable angina. Patient was recently hospitalized and found to have abnormal cardiac stress test. Patient was to have outpatient heart catheterization. Patient continued to have chest pain and was admitted for further evaluation. Patient seen and evaluated by cardiology. Cardiology performed heart catheterization. Heart catheterization showed 80% proximal LAD stenosis and 95% mid LAD stenosis. Patient had successful stents placed to both areas. At discharge patient without significant chest pain, shortness of breath. New medication includes Plavix. At discharge the patient will continue with aspirin 81 mg daily, Plavix 75 mg daily, Norvasc 10 mg daily, metoprolol 50 mg 1 pill twice daily and pravastatin 40 mg daily. Recommend follow-up with cardiology in 1 to 2 weeks to follow-up hospitalization. Edu cation on CAD, stents will be provided. Recommend for the patient to follow-up with his PCP to follow-up his hospitalization as well. Patient with hypertension. This is well controlled. At discharge patient will continue with Norvasc 10 mg daily and metoprolol 50 mg 1 pill twice daily. Recommend to maintain blood pressure less than 130/80. Further adjustment and monitoring can be done by his PCP or cardiology. Patient with hyperlipidemia. At discharge patient will continue with pravastatin 40 mg daily. Recommend to recheck fasting the panel in 4 to 6 weeks to monitor his progress. Patient with GERD. At discharge patient will continue with Protonix 40 mg daily. Patient with depression with anxiety and attention deficit disorder. At discharge he will continue with his current medications of BuSpar 10 mg 1 pill twice daily, Cymbalta 60 mg daily, and Concerta 18 mg as directed. Patient with BPH. At discharge patient will continue with Flomax 0.4 mg daily. Vital Signs/Physical Exam: Temp Pulse Resp BP Pulse Ox 97.9 F 50 16 114/63 99 03/14/21 04:00 03/14/21 04:00 03/14/21 04:00 03/14/21 04:00 03/14/21 04:00 General: Alert, In no apparent distress, Oriented x3, Cooperative HEENT: Atraumatic Neck: Supple Respiratory: Clear to auscultation bilaterally, Normal air movement Cardiovascular: Normal pulses, Regular rate/rhythm Gastrointestinal: Normal bowel sounds, Soft and benign, Non-distended, No tenderness, No masses, No rebound, No guarding Musculoskeletal: No erythema, No tenderness, No warmth Integumentary: No tenderness/swelling Neurological: Normal speech, Normal strength at 5/5 x4 extr, Normal tone, Normal affect Laboratory Data at Discharge: WBC 6.30 K/uL (4.3-10.9) 03/13/21 07:35 Hgb 12.9 g/dL (13.6-17.9) L 03/13/21 07:35 Hct 37.6 % (39.6-49.0) L 03/13/21 07:35 Plt Count 285 K/uL (152-406) 03/13/21 07:35 PT 10.8 SECONDS (9.5-12.5) 03/13/21 07:35 INR 0.94 03/13/21 07:35 Sodium 142 mmol/L (136-145) 03/14/21 05:20 Potassium 3.9 mmol/L (3.5-5.1) 03/14/21 05:20 BUN 12 mg/dL (7-18) 03/14/21 05:20 Creatinine 0.72 mg/dL (0.55-1.3) 03/14/21 05:20 Glucose 114 mg/dL (74-106) H 03/14/21 05:20 Magnesium 1.9 mg/dL (1.8-2.4) 03/14/21 05:20 Home Medications: Amlodipine Besylate 10 mg PO DAILY 03/11/21 Buspirone HCl [Buspar] 1 tab PO BID 03/11/21 Duloxetine HCl 60 mg PO DAILY 03/11/21 Methylphenidate HCl [Concerta] 1 tab PO DAILY 03/11/21 Metoprolol Tartrate 50 mg PO BID 03/11/21 Pantoprazole Sodium 40 mg PO DAILY 03/11/21 Pravastatin Sodium 40 mg PO DAILY 03/11/21 Tamsulosin HCl 1 cap PO DAILY 03/11/21 Aspirin [Aspirin EC 81 MG] 81 mg PO DAILY #90 tablet. 03/12/21 Clopidogrel Bisulfate [Plavix] 75 mg PO DAILY #30 tablet 03/14/21 New Medications: Clopidogrel Bisulfate [Plavix] 75 mg PO DAILY #30 tablet Physician Discharge Instructions: Patient presented with chest pain, unstable angina. Patient was recently hospitalized and found to have abnormal cardiac stress test. Patient was to have outpatient heart catheterization. Patient continued to have chest pain and was admitted for further evaluation. Patient seen and evaluated by cardiology. Cardiology performed heart catheterization. Heart catheterization showed 80% proximal LAD stenosis and 95% mid LAD stenosis. Patient had successful stents placed to both areas. At discharge patient without significant chest pain, shortness of breath. New medication includes Plavix. At discharge the patient will continue with aspirin 81 mg daily, Plavix 75 mg daily, Norvasc 10 mg daily, metoprolol 50 mg 1 pill twice daily and pravastatin 40 mg daily. Recommend follow-up with cardiology in 1 to 2 weeks to follow-up hospitalization. Education on CAD, stents will be provided. Recommend for the patient to follow- up with his PCP to follow-up his hospitalization as well. Patient with hypertension. This is well controlled. At discharge patient will continue with Norvasc 10 mg daily and metoprolol 50 mg 1 pill twice daily. Recommend to maintain blood pressure less than 130/80. Further adjustment and monitoring can be done by his PCP or cardiology. Patient with hyperlipidemia. At discharge patient will continue with pravastatin 40 mg daily. Recommend to recheck fasting the panel in 4 to 6 weeks to monitor his progress. Patient with GERD. At discharge patient will continue with Protonix 40 mg daily. Patient with depression with anxiety and attention deficit disorder. At discharge he will continue with his current medications of BuSpar 10 mg 1 pill twice daily, Cymbalta 60 mg daily, and Concerta 18 mg as directed. Patient with BPH. At discharge patient will continue with Flomax 0.4 mg daily. Diet: AHA Activity: Ad lilia Followup: Isaiah Espinoza MD [Primary Care Provider] - Time spent managing pt's care (in minutes): 55
[2021-03-14 08:31] VITALS: O2SAT 100
[2021-03-14] MEDS ORDERED: POTASSIUM 25 MEQ EFFERV TAB PO ONE (09:00)
[2021-03-14] MEDS ORDERED: AMLODIPINE 10 MG TAB PO SCH (09:00)
[2021-03-14] MEDS ORDERED: ENOXAPARIN 40 MG/0.4 ML SQ SCH (09:00)
[2021-03-14] MEDS ORDERED: ASPIRIN EC 81 MG TAB PO SCH (09:00)
--- NOTE | 2021-03-19 15:07 | CON ---
Date of Consultation: 03/13/2021 Reason For Consultation: Unstable angina, recent positive stress test. History Of Present Illness: Mr. Billings is a 65-year-old male, who was in the hospital few da ys ago, underwent a stress test, but did not want to wait for the results. This stress test came jose k strongly positive. He was to come to the office and have an outpatient heart catheterization set u p; however, he developed unstable anginal symptoms and came to the emergency room on 03/13/2021, and I had intended to take him to the dental laboratory worker that day because of unstable angina. Past Medical History: Includes hypertension, dyslipidemia, gastroesophageal reflux disease, benign p rostatic hypertrophy. Review of Systems: Negative. Social History: Positive for tobacco. Family History: Positive for heart disease. Allergies: NONE. Medications: At home include aspirin, Norvasc, BuSpar, Plavix, Concerta, metoprolol, pantoprazole, p ravastatin, and Flomax. Physical Examination: Vital Signs: Stable, afebrile. HEENT: Negative. Neck: Supple without any bruit, lymphadenopathy, JVD, or thyromegaly. Chest: Clear to auscultation and percussion. Cardiac: Revealed a regular rhythm and rate. No murmurs, gallops, or rubs. Abdomen: Benign. Extremities: Revealed no clubbing, cyanosis, or edema. Diagnostic Data: Within normal limit, except for a recent positive stress test. Impression And Plan: The patient with abnormal stress test, classic unstable anginal symptoms, hyper tension, dyslipidemia, family history of heart disease. We will take him to the dental laboratory worker today to de fine his coronary anatomy. Continue his present regimen otherwise. We will see what the future plan depending on what the catheterization shows. SARA/MODL Voice ID: [id number] Report ID: [id number]
== END 2021-03-14 08:32 | disposition home or self-care (01) ==
LOC: ER 07:19 → ERHOLD 10:12 → 2ND 12:10
PROVIDERS: ADMIT Family Medicine; ATTEND Family Medicine
DX: I25.110 Atherosclerotic heart disease of native coronary artery with unstable angina pectoris (principal); I10 Essential (primary) hypertension; E78.5 Hyperlipidemia, unspecified; F41.8 Other specified anxiety disorders; F98.8 Other specified behavioral and emotional disorders with onset usually occurring in childhood and adolescence; N40.0 Benign prostatic hyperplasia without lower urinary tract symptoms; K21.9 Gastro-esophageal reflux disease without esophagitis; E66.9 Obesity, unspecified; Z68.31 Body mass index [BMI] 31.0-31.9, adult
CPT/HCPCS: 93005; 85025; 80048 ×2; 36415; 83735; 85610; 81003; 84484; 83880; 71045; 92928; 93454; 99285; C1893; C1760; C1725; C1877; J2250; J3010; J0583; J7040; J7030; J1644; 85347; G0378